=== PATIENT | female | born 1965 | race Caucasian/White ===

== ENCOUNTER 2016-09-11 11:22 | Emergency (ER) | payer OTHER | END 2016-09-11 12:08 | disposition home or self-care (01) | LOC: ER1 11:22 | DX: S61.412A Laceration without foreign body of left hand, initial encounter (principal); Z23 Encounter for immunization; W26.8XXA Contact with other sharp object(s), not elsewhere classified, initial encounter; Y99.0 Civilian activity done for income or pay; Y92.69 Other specified industrial and construction area as the place of occurrence of the external cause | CPT/HCPCS: 12001; 90471; 90715; 99282 ==

== ENCOUNTER → 2020-12-12 | Outpatient (CLI) | payer BC, OTHER ==
[2020-12-12 09:04] LABS: HEMOGLOBIN 15.3 gm/dl (12.3-15.3); WHITE BLOOD COUNT 7.4 K/UL (4.5-11.0)
[2020-12-12 09:24] LABS: BUN/CREATININE RATIO 21 (0-10)
== END ==
LOC: LAB 08:39
PROVIDERS: Emergency Medicine
DX: E53.9 Vitamin B deficiency, unspecified (principal); G89.4 Chronic pain syndrome; R53.83 Other fatigue; E78.2 Mixed hyperlipidemia; R00.2 Palpitations; R73.09 Other abnormal glucose; R03.0 Elevated blood-pressure reading, without diagnosis of hypertension; G44.89 Other headache syndrome; E11.9 Type 2 diabetes mellitus without complications; M13.871 Other specified arthritis, right ankle and foot; E03.8 Other specified hypothyroidism
CPT/HCPCS: 36415; 80053; 82607; 84443; 85025

== ENCOUNTER 2021-06-28 16:30 | Emergency (ER) | payer BC ==
[2021-06-28 17:28] LABS: HEMOGLOBIN 15.1 gm/dl (12.3-15.3); RED BLOOD COUNT 5.1 M/UL (4.00-5.10)
[2021-06-28 17:46] LABS: BUN/CREATININE RATIO 24 (0-10)
[2021-06-28] MEDS ORDERED: ATIVAN1 MG PO (21:39)
[2021-06-28] MEDS ORDERED: PHENERGAN 25 MG25 M1 PO (21:39)
[2021-06-28] MEDS ORDERED: PERCOCET 5/325 T1 EA PO (21:39)
== END 2021-06-28 22:02 | disposition home or self-care (01) ==
LOC: ER1 16:30
PROVIDERS: Student in an Organized Health Care Education/Training Program
DX: N13.2 Hydronephrosis with renal and ureteral calculous obstruction (principal); I10 Essential (primary) hypertension
CPT/HCPCS: 80048; 81001; 85025; 96372; 96374; 96375; 96376; 99284; J1170; J1885; J2060; J2270; J2405

== ENCOUNTER 2021-08-29 19:38 | Emergency (ER) | payer BC ==
[~2021-08-29 19:38] MED LIST: ATIVAN1 MG PO; PERCOCET 5/325 T1 EA PO; PHENERGAN 25 MG25 M1 PO
[2021-08-29 21:01] LABS: HEMOGLOBIN 14.1 gm/dl (12.3-15.3); RED BLOOD COUNT 4.68 M/UL (4.00-5.10); WHITE BLOOD COUNT 8.2 K/UL (4.5-11.0)
[2021-08-29 21:32] LABS: BUN/CREATININE RATIO 20 (0-10)
[2021-08-30] MEDS ORDERED: FLOMAX0.4 MG PO (00:20)
[2021-08-30] MEDS ORDERED: HYDROCODONE-AC1 EACH PO (01:57)
== END 2021-08-30 02:07 | disposition home or self-care (01) ==
LOC: ER1 19:38
PROVIDERS: Physician Assistant Medical
DX: N13.2 Hydronephrosis with renal and ureteral calculous obstruction (principal); Z87.442 Personal history of urinary calculi
CPT/HCPCS: 80053; 81001; 83690; 85025; 96374; 96375; 99284; J1170; J1885; J2550; J7030

== ENCOUNTER → 2022-01-16 | Outpatient (CLI) | payer BC ==
[~2022-01-16] MED LIST changes: +FLOMAX0.4 MG PO; +HYDROCODONE-AC1 EACH PO
== END ==
LOC: KOH-I 13:09
DX: M79.605 Pain in left leg (principal); R60.0 Localized edema
CPT/HCPCS: 93971

== ENCOUNTER → 2022-01-27 | Outpatient (CLI) | payer BC | LOC: EMI 14:55 | DX: R60.0 Localized edema (principal); M79.605 Pain in left leg; S83.242A Other tear of medial meniscus, current injury, left knee, initial encounter | CPT/HCPCS: 73718; 73721 ==

== ENCOUNTER → 2022-02-10 | Outpatient (CLI) | payer BC ==
[2022-02-10 10:43] LABS: HEMOGLOBIN 14.6 gm/dl (12.3-15.3); RED BLOOD COUNT 4.81 M/UL (4.00-5.10); WHITE BLOOD COUNT 6.3 K/UL (4.5-11.0)
[2022-02-10 11:05] LABS: BUN/CREATININE RATIO 17 (0-10)
[2022-02-12 11:15] LABS: CHOLESTEROL, TOTAL 182 mg/dL (100-199); HDL SIZE 8.5 nm (>=9.2); HDL-C 40 mg/dL (>39); HDL-P (TOTAL) 27.1 umol/L (>=30.5); LARGE HDL-P 2.3 umol/L (>=4.8); LARGE VLDL-P 4.9 nmol/L (<=2.7); LDL SIZE 20.7 nm (>20.5); LDL SIZE 20.7 nm (>=20.8); LDL-C 116 mg/dL (0-99); LDL-P 1443 nmol/L (<1000); LP-IR SCORE 75 (<=45); SMALL LDL-P 764 nmol/L (<=527); TRIGLYCERIDES 147 mg/dL (0-149); VLDL SIZE 49.4 nm (<=46.6)
== END ==
LOC: LAB 08:43
PROVIDERS: Emergency Medicine
DX: E53.8 Deficiency of other specified B group vitamins (principal); K21.9 Gastro-esophageal reflux disease without esophagitis; E78.2 Mixed hyperlipidemia; M51.36 Other intervertebral disc degeneration, lumbar region; R00.2 Palpitations
CPT/HCPCS: 36415; 80053; 80061; 82607; 83704; 84443; 84550; 85025

== ENCOUNTER → 2022-03-23 | Outpatient (CLI) | payer BC | LOC: EMI 08:00 | DX: G89.4 Chronic pain syndrome (principal); M51.16 Intervertebral disc disorders with radiculopathy, lumbar region; M79.605 Pain in left leg; E11.9 Type 2 diabetes mellitus without complications; M47.26 Other spondylosis with radiculopathy, lumbar region | CPT/HCPCS: 72148 ==